=== PATIENT | female | born 1950 | race Caucasian/White ===

== ENCOUNTER 2020-10-24 15:09 | Emergency (ER) | payer MEDICARE, SELFPAY ==
--- NOTE | ~2020-10-24 | CT_ITS ---
EXAMINATION: CT abdomen pelvis w con DATE: 10/24/2020 16:28 INDICATION: Left lower quadrant pain for 4 days TECHNIQUE: Computed tomography (CT) of the abdomen and pelvis was performed with 100 cc Omnipaque 350 intravenous contrast. The dose-length product was 348.78 mGy-cm. Automated exposure control and iter ative reconstruction technique were employed. COMPARISON: None. FINDINGS: Lung bases are unremarkable. Heart size is normal. Moderate atherosclerosis. No aneurysm. N o lymphadenopathy. Fatty infiltration of the liver. The spleen, pancreas, adrenal glands and kidneys are unremarkable. T here is thickening of the descending colon with diverticula and surrounding phlegmonous change, consi stent with acute diverticulitis. No evidence for perforation or abscess. Small amount of free fluid i n the pelvis. No free air. Normal appendix. Gallbladder is present. Mild lumbar spondylosis. IMPRESSION: 1. Acute uncomplicated diverticulitis of the descending colon. Reviewed, dictated and finalized at location A. [facility] C[facility]
[2020-10-24 15:11] VITALS: BP 188/87; PULSE 120; RESP 18; TEMP 36.8; O2SAT 100
[2020-10-24 15:42] VITALS: BP 176/77; PULSE 115; RESP 18; O2SAT 100
--- NOTE | 2020-10-24 15:43 | ED.ABDPAIN ---
HPI - Abdominal Pain General Chief Complaint: Abdominal Pain Stated Complaint: lt low abd pain Time Seen by Provider: 10/24/20 15:15 Source: patient Mode of arrival: ambulatory Limitations: no limitations History of Present Illness HPI narrative: This is a 70 year old female who presents for evaluation of left lower abdominal pain. This pain has been occurring intermittently for 2 days. Her pain is located in the left lower quadrant and she denies radiation of her pain. She has been taking ibuprofen for her pain every 6 hours. Her pain last for a few minutes and then it resolves. She does not currently have pain but she had pain just prior to arrival. She denies associated nausea, vomiting, fever, chills, dysuria or hematuria. She denies history of diverticulitis. She was evaluated by her industrial order clerk and he has ordered an ultrasound to be performed on Tuesday. She did not want to wait until Tuesday. Related Data Home Medications Medication Instructions Recorded Confirmed alprazolam 10/24/20 Allergies Allergy/AdvReac Type Severity Reaction Status Date / Time latex Allergy Mild GETS ITCHY Verified 10/24/20 15:21 RASH erythromycin base Allergy Unknown Hives Verified 10/24/20 15:21 Review of Systems Review of Systems: All systems reviewed & are unremarkable except as noted in HPI and below Constitutional: Constitutional: Denies chills and Denies fever(s) Gastrointestinal: Gastrointestinal: Reports abdominal pain, Reports constipation, Denies diarrhea, Denies nausea and Denies vomiting Genitourinary: Genitourinary: Denies hematuria, Denies dysuria and Denies flank pain Musculoskeletal: Musculoskeletal: Denies back pain [facility] Past Medical History Medical History (Updated 10/24/20 @ 17:03 by Chelsey Abel MD) Patient denies medical problems Surgical History Surgical History (Updated 10/24/20 @ 15:44 by Chelsey Abel MD) History of tonsillectomy Family History Family History (Updated 03/12/16 @ 23:21 by DOCTOR UNKNOWN) Father Depression Cerebrovascular accident Family history of malignant neoplasm Family history of Alzheimer's disease Mother Depression Patient's mother is in good health Family history of malignant melanoma Family history of hearing loss Sibling Patient's sister is in good health Other Family history of allergic disorder Family history of attention deficit hyperactivity disorder (ADHD) Family history of eczema Family history of learning disability Social History Social History Smoking status: Never smoker Alcohol intake: current Gender identity (if verbalized by the patient): Female Exam Const: General: no acute distress and alert Orientation/consciousness: patient oriented x3 HENMT: Head: normocephalic and atraumatic Face and sinus: face symmetric Mouth: Yes Normal oral and palatal mucosa present, Yes lip normal, Yes oropharynx normal and Yes moist mucous membranes Throat: posterior oropharynx normal Eyes: EOM: EOMs intact bilaterally Chest: Chest palpation & inspection: normal inspection of the chest Resp: Effort & Inspection: normal respiratory effort and no retractions Auscultation: clear to auscultation bilaterally Cardio: Rate: tachycardic Rhythm: regular rhythm Heart sounds: no murmurs GI: GI Palp: Yes Soft to palpation, Yes Tenderness to palpation present (GI) (LLQ) and No Guarding due to palpation present (GI) Auscultation: normal bowel sounds : General: Yes no CVA tenderness Skin: General skin exam: normal color Rashes: no rashes Neuro: General: patient oriented x3 and moves all extremities Course Reevaluation(s) Reevaluation #1: I discussed with patient that she was found to have uncomplicated diverticulitis. She will be given a dose of antibiotics while in ED and she will be discharged. Date: 10/24/20 Time: 17:01 Vital Signs Vital signs: Vital Signs Temperature 98.3 F 10/24/20 15:11
[2020-10-24] MEDS: SODIUM CHLORIDE 0.9% IV 1,000 ML 999 ML IV CONT (15:55)
--- NOTE | 2020-10-24 15:56 | PC.NURSE ---
Pt ambulated in [place] to restroom and provided urine specimen that was collected and sent to lab. Pt now resting on cart and is complaining of mild left, lower abdominal pain that increases with palpation. Pt states abdominal pain onset Tuesday and she has been treating with advil with relief. Last dose of Advil 400mg at 1400. Pt states she was seen by her [employer] this morning in relation to pain and he advised her that he would do a ultrasound on Tuesday. Pt states that increases anxiety and fear of increased pain made her present to ED as she felt that she couldn't wait until Tuesday to be seen. Pt admits to hx of anxiety and states she took at total of 0.5mg of xanax at 1300, pt noted to be trembling at this time and states that it is due to her anxiety. Pt denies nausea, emesis and diarrhea. Pt currently rates abdominal pain 1/10 at this time. Resting on cart on phone, calling . Pt aware of poc and all questions and concerns addressed at this time. Call button and personal items within reach. Pt advised to press call button for assistance.
[2020-10-24 16:00] LABS: Basophils Percent Auto 0.2 % (0.2-1.2); Eosinophils Percent Auto 0.2 % (0-4.4); Hemoglobin 13.5 g/dL (12.0-15.0); Immature Granulocyte Absolute 0.04 K/mm3 (0.00-0.031); Immature Granulocyte Percent A 0.3 % (0-0.5); Lymphocytes Absolute Auto 2.51 K/mm3 (0.9-3.2); Lymphocytes Percent Auto 18.3 % (18.3-44.2); Mean Corpuscular HGB Conc 32.9 g/dl (32-36); Mean Corpuscular Hemoglobin 31.5 pg (26-34); Mean Corpuscular Volume 95.8 fl (80-100); Mean Platelet Volume 10.8 fl (7.4-10.4); Monocytes Absolute Auto 1.2 K/mm3 (0.1-0.6); Neutrophils Absolute Auto 9.9 K/mm3 (1.3-6.7); Platelet Count Result 162 k/mm3 (150-375); Red Blood Count 4.28 M/mm3 (4.2-5.4); Red Cell Distribution Width 12.3 % (11.5-14.5); White Blood Count 13.7 K/mm3 (4.5-10.0)
[2020-10-24 16:02] LABS: Add Urine Microscopic? NO; Appearance Urine Clear (Clear); Bilirubin Urine Negative (Negative); Blood Urine Negative (Negative); Color Urine Straw (Yellow); Glucose Urine UA Negative (Negative); Ketones Urine Negative (Negative); Leukocyte Esterase Ur Negative LEU/UL (Negative); Nitrate Urine Negative (Negative); Protein Urine Negative (Negative); Specific Grav Ur 1.011 (1.001-1.035); Urobilinogen Urine Negative mg/dL (<2.0)
[2020-10-24 16:10] LABS: Lactic Acid Reflex 1.4 mmol/L (0.7-2.1)
[2020-10-24 16:12] LABS: Alanine Aminotransferase 27 U/L (4-35); Albumin Level 4.4 g/dL (3.5-5.1); Alkaline Phosphatase 98 U/L (38-126); Anion Gap 9 mmol/L (8-16); Aspartate Amino Transferase 32 U/L (14-36); Bilirubin,Total 1.8 mg/dL (0.2-1.3); Blood Urea Nitrogen 10 mg/dL (7-17); Calcium 9.1 mg/dL (8.4-10.2); Carbon Dioxide 27 mmol/L (22-30); Chloride 107 mmol/L (98-107); Estimated CRCL calculation 54 ml/min; Estimated Glomerular Filt Rate > 60; Glucose 127 mg/dL (65-105); Lipase 61 U/L (23-300); Potassium 3.6 mmol/L (3.4-5.0); Sodium 143 mmol/L (137-145)
[2020-10-24 16:39] VITALS: BP 172/75; PULSE 118; RESP 20; TEMP 37.2; O2SAT 99
--- NOTE | 2020-10-24 16:43 | PC.NURSE ---
Pt assisted to restroom and ambulated in [place] with a steady gait. at bedside. pt now back in room and resting on cart in its lowest position with call button and personal items within reach. Pt and updated on poc and advised the MD will present for update. No complaints or concerns voiced. EDMD to bedside to update pt and on poc. All questions and concerns addressed. Pt educated on home care for diverticulitis and the need to follow up with GI. Pt and voice their understanding.
[2020-10-24] MEDS: metroNIDAZOLE 250 MG TABLET 500 MG PO (16:59)
--- NOTE | 2020-10-24 17:11 | PC.NURSE ---
Pt ambulated in [place] to restroom with a steady gait and is now back in room and resting on cart. Pt and aware of poc. ABT infusing and will dc pt when completed. Pt has no complaints or concerns voiced at this time. vitals stable. remains at bedside. Call button and personal items within reach. Pt advised to press call button for assistance.
[2020-10-24 17:39] VITALS: BP 149/74; PULSE 97; RESP 15; O2SAT 99
== END 2020-10-24 17:43 | disposition home or self-care (01) ==
PROVIDERS: Emergency Provider General Practice; PCP Internal Medicine
DX: K57.32 Diverticulitis of large intestine without perforation or abscess without bleeding (principal)
CPT/HCPCS: 36415; 74177; 80053; 81003; 83605; 83690; 85025; 96365; 96367; 99284; A9270; J0131; J0696; J7030; Q9967

== ENCOUNTER 2020-10-26 06:55 | Emergency (ER) | payer MEDICARE, SELFPAY ==
[2020-10-26 07:02] VITALS: BP 168/103; PULSE 91; RESP 18; TEMP 36.8; O2SAT 99
[2020-10-26 07:42] LABS: Basophils Percent Auto 0.2 % (0.2-1.2); Eosinophils Percent Auto 0.1 % (0-4.4); Hematocrit 40.3 % (37.0-47.0); Hemoglobin 13.5 g/dL (12.0-15.0); Immature Granulocyte Absolute 0.06 K/mm3 (0.00-0.031); Immature Granulocyte Percent A 0.5 % (0-0.5); Lymphocytes Absolute Auto 1.72 K/mm3 (0.9-3.2); Lymphocytes Percent Auto 13.6 % (18.3-44.2); Mean Corpuscular HGB Conc 33.5 g/dl (32-36); Mean Corpuscular Hemoglobin 31.9 pg (26-34); Mean Corpuscular Volume 95.3 fl (80-100); Mean Platelet Volume 10.6 fl (7.4-10.4); Monocytes Absolute Auto 1.4 K/mm3 (0.1-0.6); Monocytes Percent Auto 11.2 % (2.6-8.5); Neutrophils Absolute Auto 9.4 K/mm3 (1.3-6.7); Neutrophils Percent Auto 74.4 % (45.5-73.1); Platelet Count Result 160 k/mm3 (150-375); Red Blood Count 4.23 M/mm3 (4.2-5.4); Red Cell Distribution Width 12.2 % (11.5-14.5); White Blood Count 12.6 K/mm3 (4.5-10.0)
[2020-10-26] MEDS: LORazepam INJ (*CRX) 2 MG/ML VIAL 0.5 MG IV PUSH (07:46)
[2020-10-26] MEDS: ONDANSETRON INJ 4 MG/2 ML VIAL IV PUSH (07:46)
[2020-10-26] MEDS: SODIUM CHLORIDE 0.9% IV 1,000 ML 250 ML IV CONT (07:46)
[2020-10-26 07:54] LABS: Anion Gap 8 mmol/L (8-16); Blood Urea Nitrogen 12 mg/dL (7-17); Calcium 9.4 mg/dL (8.4-10.2); Carbon Dioxide 27 mmol/L (22-30); Chloride 105 mmol/L (98-107); Estimated CRCL calculation 33 ml/min; Estimated Glomerular Filt Rate 45; Glucose 120 mg/dL (65-105); Potassium 3.7 mmol/L (3.4-5.0); Sodium 140 mmol/L (137-145)
[2020-10-26 09:22] VITALS: BP 154/79; PULSE 90; RESP 16; O2SAT 96
--- NOTE | 2020-10-26 10:01 | PC.NURSE ---
pt reports decreased nausea and anxiety after meds. layo small sips h20.
--- NOTE | 2020-10-26 10:27 | ED.GENADULT ---
HPI - General Adult General Chief complaint: Nausea/Vomiting/Diarrhea Stated complaint: Nausea from antibiotic Time Seen by Provider: 10/26/20 07:28 Source: patient and family Mode of arrival: ambulatory Limitations: no limitations History of Present Illness HPI narrative: 70-year-old with a history of anxiety disorder, diverticulitis presently on Cipro and Flagyl here with complaints of nausea and vomiting since yesterday. Patient states that her oral antibiotics are making her sick to her stomach and her anxiety is through the roof. She denies any fever or chills. Patient states that the pain in the lower abdomen has markedly reduced. She denies any other history patient Onset (ago): day(s) (1) Associated symptoms: denies other symptoms Related Data Home Medications Medication Instructions Recorded Confirmed alprazolam 10/24/20 Allergies Allergy/AdvReac Type Severity Reaction Status Date / Time latex Allergy Mild GETS ITCHY Verified 10/26/20 07:17 RASH erythromycin base Allergy Unknown Hives Verified 10/26/20 07:17 Review of Systems Review of Systems: All systems reviewed & are unremarkable except as noted in HPI and below Constitutional: Constitutional: Reports no additional constitutional complaints Eyes: Eyes: Reports no additional eye complaints ENT: Reports system reviewed and no additional complaints, except as documented Cardiovascular: Cardiovascular: Reports no additional cardiovascular complaints Respiratory: Respiratory: Reports no additional respiratory complaints Gastrointestinal: Gastrointestinal: Reports as per HPI Musculoskeletal: Musculoskeletal: Reports no additional musculoskeletal complaints Neurologic: Reports system reviewed and no additional complaints, except as documented Psychiatric: Psychiatric: Reports as per HPI [facility] Past Medical History Medical History Patient denies medical problems Surgical History Surgical History History of tonsillectomy Family History Family History Father Depression Cerebrovascular accident Family history of malignant neoplasm Family history of Alzheimer's disease Mother Depression Patient's mother is in good health Family history of malignant melanoma Family history of hearing loss Sibling Patient's sister is in good health Other Family history of allergic disorder Family history of attention deficit hyperactivity disorder (ADHD) Family history of eczema Family history of learning disability Social History Social History Smoking status: Never smoker Alcohol intake: current Gender identity (if verbalized by the patient): Female Exam Narrative: Exam Narrative: GENERAL: Well-appearing, well-nourished, and in no acute distress ,anxious HEAD: Normocephalic, atraumatic. EYES: PERRLA and EOMI. ENT: Mucous membranes moist. NECK: Supple. CHEST: Clear to auscultation. No respiratory distress. HEART: Regular rate and rhythm. No murmur heard. Normal peripheral pulses. ABDOMEN: Soft, nontender, nondistended, normal active bowel sounds. EXTREMITIES: Normal range of motion. No edema. SKIN: Warm, dry, no rash. NEURO: No focal deficits. Alert and oriented x3. PSYCH: Normal mood and affect. Course Course Emergency Course: After IV Zofran and Ativan patient started feeling much better have given a liter of fluids I discussed lab work with the patient will change antibiotic to Augmentin. Advised her to continue her Xanax as needed. Advised her to drink plenty of fluids. Vital Signs Vital signs: Vital Signs Temperature 36.8 C 10/26/20 07:02 Pulse Rate 91 10/26/20 07:02 Respiratory Rate 18 10/26/20 07:02 Blood Pressure 168/103 H 10/26/20 07:02 Pulse Oximetry 99 10/26/20 07:02 Tem
[2020-10-26 10:42] VITALS: BP 141/73; PULSE 79; RESP 16; O2SAT 99
== END 2020-10-26 10:45 | disposition home or self-care (01) ==
PROVIDERS: Emergency Provider Family Medicine; PCP Internal Medicine
DX: R11.2 Nausea with vomiting, unspecified (principal); E86.0 Dehydration; F41.9 Anxiety disorder, unspecified; T50.905A Adverse effect of unspecified drugs, medicaments and biological substances, initial encounter
CPT/HCPCS: 36415; 80048; 85025; 96361; 96374; 96375; 99284; J2060; J2405; J7030

== ENCOUNTER 2021-01-15 22:24 | Emergency (ER) | payer MEDICARE, SELFPAY ==
--- NOTE | ~2021-01-15 | CT_ITS ---
EXAMINATION: CT abdomen pelvis w con EXAM DATE: 01/16/2021 01:47 INDICATION: Diverticulitis diagnosed 01/08. Fever. Headache. TECHNIQUE: Spiral CT of the abdomen and pelvis was performed following intravenous injection of 100 m L Omnipaque 350. Axial, coronal and sagittal images of the abdomen and pelvis were reviewed. The do se-length product (DLP) for this examination was 274.26 mGy-cm. The exposure was tailored according to patient size (auto mA exposure control), and iterative reconstruction (ASIR) was used as additiona l dose reduction technique. Comparison is made to prior examination from 10/24/2020. FINDINGS: There is hepatic steatosis without suspicious focal lesion identified. Spleen, adrenal glan ds, pancreas are unremarkable. Gallbladder is unremarkable. No biliary obstruction. Portal and spl enic veins are patent. Kidneys enhance symmetrically. There is no hydronephrosis. Possible bladder, right-sided upper urinary tract infection without renal parenchymal involvement. Correlate with urin alysis. The uterus is anteverted and morphologically normal. There is no retroperitoneal or pelvic lymphadenopathy. The appendix is normal. There is mild sigmoid colonic diverticulosis. There is no adjacent inflammat ory change to suggest diverticulitis. The stomach and small bowel are unremarkable. There is expecte d amount of colonic stool. No free intraperitoneal gas. The heart is normal in size. There are n o pericardial or pleural effusions. The lung bases are unremarkable. The bones are unremarkable. IMPRESSION: 1. Possible bladder, right-sided upper urinary tract infection. 2. Resolution of previously seen diverticulitis. Reviewed, dictated and finalized at location B.
[2021-01-15 22:26] VITALS: BP 193/88; PULSE 118; RESP 18; TEMP 35.7; O2SAT 99
[2021-01-15 22:46] LABS: Basophils Percent Auto 0.4 % (0.2-1.2); Eosinophils Absolute Auto 0.3 K/mm3 (0-0.3); Eosinophils Percent Auto 3.8 % (0-4.4); Hematocrit 40.3 % (37.0-47.0); Hemoglobin 13.3 g/dL (12.0-15.0); Immature Granulocyte Absolute 0.01 K/mm3 (0.00-0.031); Immature Granulocyte Percent A 0.1 % (0-0.5); Lymphocytes Absolute Auto 2.69 K/mm3 (0.9-3.2); Lymphocytes Percent Auto 37.5 % (18.3-44.2); Mean Corpuscular Hemoglobin 31.4 pg (26-34); Mean Corpuscular Volume 95.3 fl (80-100); Mean Platelet Volume 9.9 fl (7.4-10.4); Monocytes Absolute Auto 0.7 K/mm3 (0.1-0.6); Monocytes Percent Auto 9.2 % (2.6-8.5); Neutrophils Absolute Auto 3.5 K/mm3 (1.3-6.7); Platelet Count Result 168 k/mm3 (150-375); Red Blood Count 4.23 M/mm3 (4.2-5.4); Red Cell Distribution Width 12.2 % (11.5-14.5); White Blood Count 7.2 K/mm3 (4.5-10.0)
[2021-01-15 22:57] LABS: Alanine Aminotransferase 24 U/L (4-35); Albumin Level 4.5 g/dL (3.5-5.1); Alkaline Phosphatase 87 U/L (38-126); Anion Gap 10 mmol/L (8-16); Aspartate Amino Transferase 32 U/L (14-36); Bilirubin,Total 1.2 mg/dL (0.2-1.3); Blood Urea Nitrogen 12 mg/dL (7-17); Calcium 9.7 mg/dL (8.4-10.2); Carbon Dioxide 26 mmol/L (22-30); Chloride 105 mmol/L (98-107); Estimated CRCL calculation 54 ml/min; Estimated Glomerular Filt Rate > 60; Glucose 111 mg/dL (65-105); Lactic Acid Reflex 0.9 mmol/L (0.7-2.1); Sodium 141 mmol/L (137-145)
[2021-01-16 01:19] VITALS: BP 141/90; PULSE 98; RESP 18; O2SAT 98
--- NOTE | 2021-01-16 01:23 | PC.NURSE ---
Pt presents to ED with and complaints of diffuse abdominal pain that onset approx one week ago. Pt states she has diverticulitis and was prescribed amoxicillin one week ago. 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 Pt is now afebrile and denies all pain and discomfort, nvd, and chills. Pt noted to be alert and oriented x4. Spouse is present at bedside. Vitals are stable and pt in no obvious distress at this time. Advised to press call button for assistance.
[2021-01-16] MEDS: SODIUM CHLORIDE 0.9% IV 1,000 ML 999 ML IV CONT (01:25)
[2021-01-16 01:45] LABS: Add Urine Microscopic? YES; Appearance Urine Clear (Clear); Bilirubin Urine Negative (Negative); Blood Urine Negative (Negative); Color Urine Straw (Yellow); Glucose Urine UA Negative (Negative); Ketones Urine Trace mg/dL (Negative); Leukocyte Esterase Ur Negative LEU/UL (Negative); Mucus Urine Rare /lpf; Nitrate Urine Negative (Negative); Protein Urine Negative (Negative); RBC Urine 0-2 /hpf (0-2); Specific Grav Ur 1.011 (1.001-1.035); Urobilinogen Urine Negative mg/dL (<2.0); WBC Urine 0-3 /hpf
--- NOTE | 2021-01-16 02:12 | PC.NURSE ---
Pt called for assistance to restroom. Pt also voices that she would like some IV medicines to help me relax ; EDMD notified and states he will place orders.
--- NOTE | 2021-01-16 02:18 | PC.NURSE ---
Pt refused lorazepam and requests to take her ativan PO. EDMD approves pt to take home meds.
[2021-01-16 02:23] VITALS: BP 115/63; PULSE 77; RESP 18; O2SAT 97
--- NOTE | 2021-01-16 02:29 | ED.GENADULT ---
HPI - General Adult General Chief complaint: Fever Stated complaint: fever Time Seen by Provider: 01/16/21 00:43 History of Present Illness HPI narrative: Patient 70-year-old female presents the emergency department with chief complaint of fever. Patient reports that she was recently diagnosed with diverticulitis and has been taking Augmentin on a scheduled basis. The patient states that she is still felt, rundown and tonight had some chills and fever at home. Patient states that her pain is improved and denies any diarrhea patient denies blood in her stool reports she has no vomiting reports she has not had a sore throat runny nose or cough. The patient denies any areas of cellulitis. Patient states symptoms are not worsened by anything nor they improved by anything. Related Data Home Medications Medication Instructions Recorded Confirmed alprazolam 10/24/20 Allergies Allergy/AdvReac Type Severity Reaction Status Date / Time latex Allergy Mild GETS ITCHY Verified 01/15/21 22:31 RASH erythromycin base Allergy Unknown Hives Verified 01/15/21 22:31 Review of Systems Review of Systems: Narrative: A 10 system review of systems was completed on the patient and is negative except for what is stated in the HPI. Nursing and ancillary documentation was reviewed. PMFSH Past Medical History Medical History Patient denies medical problems Surgical History Surgical History History of tonsillectomy Family History Family History Father Depression Cerebrovascular accident Family history of malignant neoplasm Family history of Alzheimer's disease Mother Depression Patient's mother is in good health Family history of malignant melanoma Family history of hearing loss Sibling Patient's sister is in good health Other Family history of allergic disorder Family history of attention deficit hyperactivity disorder (ADHD) Family history of eczema Family history of learning disability Social History Social History Smoking status: Never smoker Alcohol intake: current Gender identity (if verbalized by the patient): Female Comments Past medical history significant for diverticulitis Exam Narrative: Exam Narrative: GENERAL: Well-appearing, well-nourished, and in no acute distress. HEAD: Normocephalic, atraumatic. EYES: PERRLA and EOMI. ENT: Nares clear, no rhinorrhea or epistaxis. Mucous membranes moist. NECK: Supple. CHEST: Clear to auscultation. No respiratory distress. HEART: Regular rate and rhythm. No murmur heard. Normal peripheral pulses. ABDOMEN: Soft, nontender, nondistended, normal active bowel sounds. EXTREMITIES: Normal range of motion. No edema. SKIN: Warm, dry, no rash. NEURO: No focal deficits. Alert and oriented x3. PSYCH: Normal mood and affect. Course Course Emergency Course: CT scan shows evidence of improving diverticulitis that is almost completely resolved. Vital Signs Vital signs: Vital Signs Temperature 35.7 C L 01/15/21 22:26 Pulse Rate 118 H 01/15/21 22:26 Respiratory Rate 18 01/15/21 22:26 Blood Pressure 193/88 H 01/15/21 22:26 Pulse Oximetry 99 01/15/21 22:26 Temperature 35.7 C L 01/15/21 22:26 Pulse Rate 77 01/16/21 02:23 Respiratory Rate 18 01/16/21 02:23 Blood Pressure 115/63 01/16/21 02:23 Pulse Oximetry 97 01/16/21 02:23 Medical Decision Making Vital Signs Vital Signs: Vital Signs Temperature 35.7 C L 01/15/21 22:26 Pulse Rate 118 H 01/15/21 22:26 Respiratory Rate 18 01/15/21 22:26 Blood Pressure 193/88 H 01/15/21 22:26 Pulse Oximetry 99 01/15/21 22:26 Temperature 35.7 C L 01/15/21 22:26 Pulse Rate 77 01/16/21 02:23 Respiratory Rate 18 06/0
--- NOTE | 2021-01-16 02:36 | PC.NURSE ---
EDMD presented to bedside to update pt and spouse on poc. All questions and concerns addressed.
--- NOTE | 2021-01-16 02:44 | PC.NURSE ---
Pt assisted to and from restroom and is now back in room resting on cart with spouse at bedside. Pt alert and stable and in no obvious distress. Advised to press call button for assistance.
== END 2021-01-16 02:55 | disposition home or self-care (01) ==
PROVIDERS: Emergency Provider Emergency Medicine; PCP Internal Medicine
DX: R50.9 Fever, unspecified (principal); R10.84 Generalized abdominal pain
CPT/HCPCS: 36415; 74177; 80053; 81001; 83605; 85025; 96360; 99284; J7030; Q9967

== ENCOUNTER 2021-03-19 00:54 | Day surgery (SDC) | payer MEDICARE, SELFPAY ==
[2021-02-10 14:34] VITALS: BMI 24.9
[2021-03-11 10:37] VITALS: BMI 25.0
--- NOTE | 2021-03-19 07:59 | P.CONGI_ITS ---
Assessment and Plan Assessment and plan (1) Diverticulitis: Code(s): K57.92 - Diverticulitis of intestine, part unspecified, without perforation or abscess without bleeding Status: Acute Assessment and Plan: Patient is status post recent episode of diverticulitis. Colonoscopy now recommended to assess status of this infection. High-fiber diet is advised. Further recommendations will be given after endoscopy. GI Consult Note Consult date/time: 03/19/21 07:59 HPI: Juliet Feng is a 70 year old female Presents for follow-up after diverticulitis. Patient had left lower quadrant abdominal pain. CT scan consistent with diverticulitis she is now status post treatment with antibiotics. Abdominal pain has resolved. Bowel habits have returned to normal. Colonoscopy is requested after having had recent diverticulitis. There is no family history of colon cancer that she is aware of. Review of Systems Review of Systems: All systems reviewed & are unremarkable except as noted in HPI and below PMFSH Past Medical History Medical History Patient denies medical problems Surgical History Surgical History History of tonsillectomy Family History Family History Father Depression Cerebrovascular accident Family history of malignant neoplasm Family history of Alzheimer's disease Mother Depression Patient's mother is in good health Family history of malignant melanoma Family history of hearing loss Sibling Patient's sister is in good health Other Family history of allergic disorder Family history of attention deficit hyperactivity disorder (ADHD) Family history of eczema Family history of learning disability Social History Social History Smoking status: Never smoker Alcohol intake: current Living arrangements: alone Gender identity (if verbalized by the patient): Female Spiritual care concerns: No Meds Home Medications and Allergies Home Medications Medication Instructions Recorded Confirmed Type alprazolam 0.25 mg PO BID PRN 10/24/20 03/19/21 History sod picosulf 10 mg-magnes 3.5 160 ml PO BID #160 ml 02/09/21 03/19/21 Rx gram-citric 12 gram/160 mL oral solution cholecalciferol (vitamin D3) 25 mcg PO DAILY 02/10/21 03/19/21 History [Vitamin D3] guar gum [Benefiber (guar gum)] 1 tbsp PO TID 02/10/21 03/19/21 History Allergies Allergy/AdvReac Type Severity Reaction Status Date / Time latex Allergy Mild GETS ITCHY Verified 03/19/21 07:58 RASH erythromycin base Allergy Unknown Hives Verified 03/19/21 07:58 Exam Narrative: Physical exam reveals patient be alert. Vital signs stable. HEENT exam is unremarkable. Patient is anicteric. Lungs are clear to auscultation and percussion. Heart is without murmur or extra sounds. Abdominal exam bowel sounds present soft nontender with no organomegaly. Digital external rectal exam is normal.
[2021-03-19 08:00] VITALS: BP 166/63; PULSE 86; RESP 18; TEMP 36.1; O2SAT 99; BMI 24.5
--- NOTE | 2021-03-19 08:06 | WPDANESEPPF ---
Anes - Initial Pre Proc Eval Procedure: Operation Date: 03/19/21 09:00 Proposed Procedures p Colonoscopy - Jacky Perez MD Date/Time: 03/19/21 08:06 Surgeon: Jacky Perez MD Pre Op Diagnosis: diverticulitis Patient Data Age: 70 Gender: F Height: 1.6 m Weight: 62.8 kg Last Vital Signs Temp 36.1 C L 03/19/21 08:00 Pulse 86 03/19/21 08:00 Resp 18 03/19/21 08:00 BP 166/63 H 03/19/21 08:00 Pulse Ox 99 03/19/21 08:00 Allergies Allergy/AdvReac Type Severity Reaction Status Date / Time latex Allergy Mild GETS ITCHY Verified 03/19/21 07:58 RASH erythromycin base Allergy Unknown Hives Verified 03/19/21 07:58 Home Medications Medication Instructions Recorded Confirmed Type alprazolam 0.25 mg PO BID PRN 10/24/20 03/19/21 History sod picosulf 10 mg-magnes 3.5 160 ml PO BID #160 ml 02/09/21 03/19/21 Rx gram-citric 12 gram/160 mL oral solution cholecalciferol (vitamin D3) 25 mcg PO DAILY 02/10/21 03/19/21 History [Vitamin D3] guar gum [Benefiber (guar gum)] 1 tbsp PO TID 02/10/21 03/19/21 History Patient hx anesthesia problems: none Family hx anesthesia problems: none PMFSH Past Medical History Medical History (Updated 03/19/21 @ 08:07 by Marcell Celeste MD) Anxiety Surgical History Surgical History History of tonsillectomy Family History Family History Father Depression Cerebrovascular accident Family history of malignant neoplasm Family history of Alzheimer's disease Mother Depression Patient's mother is in good health Family history of malignant melanoma Family history of hearing loss Sibling Patient's sister is in good health Other Family history of allergic disorder Family history of attention deficit hyperactivity disorder (ADHD) Family history of eczema Family history of learning disability Social History Social History Smoking status: Never smoker Alcohol intake: current Living arrangements: alone Gender identity (if verbalized by the patient): Female Spiritual care concerns: No Anes - Eval Final PreProcedure Day of Procedure 03/19/21 08:06 Patient weight: normal Heart: regular rate and rhythm Lungs: clear to auscultation Airway: Mallampati scale class II Neurological: alert and oriented Last oral intake: >/= 8 hours ASA classification: II Emergent: no Anesthetic plan: proceed Anesthesia type and monitoring: general GIVS and standard monitoring Informed Consent: The patient's anesthetic plan and its attendant risks and benefits were discussed with the patient/family/POA. Questions were solicited and answers provided to the satisfaction of the patient/family/POA.
[2021-03-19] MEDS: LACTATED RINGERS 1,000 ML 150 ML IV CONT (08:08)
[2021-03-19 09:38] VITALS: BP 104/45; PULSE 80; RESP 20; O2SAT 99
[2021-03-19 09:48] VITALS: BP 129/71; PULSE 82; RESP 22; O2SAT 99
[2021-03-19 09:58] VITALS: BP 114/91; PULSE 77; RESP 18; O2SAT 99
== END 2021-03-19 10:15 | disposition home or self-care (01) ==
PROVIDERS: PCP Internal Medicine; Visit Provider Internal Medicine Gastroenterology
PROC: 0DJD8ZZ Inspection of Lower Intestinal Tract, Via Natural or Artificial Opening Endoscopic (ICD-10-PCS; CPT 45378; principal; 2021-03-19 09:00)
DX: Z09 Encounter for follow-up examination after completed treatment for conditions other than malignant neoplasm (principal); D12.2 Benign neoplasm of ascending colon; K64.8 Other hemorrhoids; K57.30 Diverticulosis of large intestine without perforation or abscess without bleeding; Z87.19 Personal history of other diseases of the digestive system; F41.9 Anxiety disorder, unspecified
CPT/HCPCS: 45385; 88305; J2704; J7120

== ENCOUNTER 2023-11-02 17:03 | Emergency (ER) | payer MEDICARE, SELFPAY ==
--- NOTE | ~2023-11-02 | CT_ITS ---
EXAMINATION: CT abdomen pelvis w con INDICATION: Left lower quadrant abdominal pain TECHNIQUE: Computed tomographic images of the abdomen and pelvis were obtained after the administrati on of 100 cc of Omnipaque 350 intravenous contrast. The dose-length product (DLP) was 228.32 mGy-cm. Automated exposure control and iterative reconstruction technique were employed. COMPARISON: 01/16/2021 FINDINGS: The lung bases are clear. The heart size is normal. The liver, spleen, pancreas, gallbladde r, and adrenal glands are normal. The kidneys are unremarkable. No pathologically enlarged abdominal or pelvic lymph nodes are identified. There is colonic diverticulosis. There is acute diverticulitis of the sigmoid colon without evidence of perforation or abscess. There is a small volume of pelvic as cites. No free intraperitoneal gas or evidence of bowel obstruction. The appendix is normal. There is mild lumbar spondylosis. IMPRESSION: 1. Uncomplicated acute sigmoid diverticulitis. Reviewed, dictated and finalized at location F.
[2023-11-02 17:06] VITALS: BP 171/79; PULSE 119; RESP 16; TEMP 36.6; O2SAT 99
--- NOTE | 2023-11-02 17:43 | ED.ABDPAIN ---
HPI - Abdominal Pain General Chief Complaint: Abdominal Pain <Suzanna Holm III, DO - Last Filed: 11/07/23 10:15> Stated Complaint: Abd pain, hx of diverticulitis <Suzanna Holm III, DO - Last Filed: 11/07/23 10:15> Time Seen by Provider: 11/02/23 17:32 <Suzanna Holm III, DO - Last Filed: 11/07/23 10:15> History of Present Illness HPI narrative: Pt presents with LLQ abdominal pain for a few days. Pt has hx of diverticulitis and this feels similar. Pt has low grade temp. Pt denies bloody stools. Pt denies nausea or vomiting. <Suzanna Holm III, DO - Last Filed: 11/07/23 10:15> Related Data Home Medications: Home Medications Medication Instructions Recorded Confirmed alprazolam 0.25 mg tablet 0.25 mg PO BID PRN Anxiety 10/24/20 09/27/22 cholecalciferol (vitamin D3) 25 25 mcg PO DAILY 02/10/21 09/27/22 mcg (1,000 unit) capsule (Vitamin D3) <Suzanna Holm III, DO - Last Filed: 11/07/23 10:15> Allergies/Adverse Reactions: Allergies Allergy/AdvReac Type Severity Reaction Status Date / Time latex Allergy Mild GETS ITCHY Verified 11/06/23 01:31 RASH erythromycin base Allergy Unknown Hives Verified 11/06/23 01:31 <Suzanna Holm III, DO - Last Filed: 11/07/23 10:15> Review of Systems Review of Systems: All systems reviewed & are unremarkable except as noted in HPI and below <Suzanna Holm III, DO - Last Filed: 11/07/23 10:15> PMFSH Past Medical History Medical History: Medical History Anxiety Bartholin's gland cyst Cataract Encounter for cervical Pap smear with pelvic exam 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 High cholesterol Hypertension Screening mammogram, encounter for Screening mammogram, encounter for <Suzanna Holm III, DO - Last Filed: 11/07/23 10:15> Surgical History Surgical History: Surgical History History of gynecological procedure cryo x 2 History of tonsillectomy <Suzanna Azam Holm III, DO - Last Filed: 11/07/23 10:15> Family History Family History: Family History Father Depression Cerebrovascular accident Family history of malignant neoplasm Family history of Alzheimer's disease Mother Depression Patient's mother is in good health Family history of malignant melanoma Family history of hearing loss Sibling Patient's sister is in good health Other Family history of allergic disorder Family history of attention deficit hyperactivity disorder (ADHD) Family history of eczema Family history of learning disability <Suzanna Azam Holm III, DO - Last Filed: 11/07/23 10:15> Social History Social History: Social History Smoking status: Never smoker Alcohol intake: former Alcohol use details: 1-2 month Substance use: never Substance use type: does not use Living arrangements: other Additional living arrangements comments: spouse Occupation/Education: retired Gender identity (if verbalized by the patient): Female Sexual Orientation (if Verbalized by the Patient): Straight or Heterosexual Spiritual care concerns: No <Suzanna Azam Holm III, DO - Last Filed: 11/07/23 10:15> Exam Const: General: healthy appearing and no acute distress <Suzanna Azam Holm III, DO - Last Filed: 11/07/23 10:15> Nutritional Appearance: well nourished <Suzanna Azam Holm III, DO - Last Filed: 11/07/23 10:15> Orientation/consciousness: patient oriented x3 <Suzanna Azam Holm III, DO - Last Filed: 11/07/23 10:15> Limitations: no limitations <Suzanna Azam Holm III, DO - Last Filed: 11/07/23 10:15> Resp: Effort & Inspection: normal respiratory effort <Suzanna Azam Holm III, DO - Last Filed: 11/07/23 10:15> Auscultation: clear to auscultat
[2023-11-02 17:51] VITALS: BP 171/86; PULSE 110; RESP 18; TEMP 37.9; O2SAT 100
[2023-11-02 18:05] LABS: Basophils Percent Auto 0.1 % (0.2-1.2); Eosinophils Absolute Auto 0.1 K/mm3 (0-0.3); Eosinophils Percent Auto 0.6 % (0-4.4); Hematocrit 40.8 % (37.0-47.0); Hemoglobin 13.3 g/dL (12.0-15.0); Immature Granulocyte Absolute 0.02 K/mm3 (0.00-0.031); Immature Granulocyte Percent A 0.3 % (0-0.5); Lymphocytes Absolute Auto 1.51 K/mm3 (0.9-3.2); Lymphocytes Percent Auto 19.1 % (18.3-44.2); Mean Corpuscular HGB Conc 32.6 g/dl (32-36); Mean Corpuscular Volume 98.3 fl (80-100); Mean Platelet Volume 10.4 fl (7.4-10.4); Monocytes Absolute Auto 0.7 K/mm3 (0.1-0.6); Monocytes Percent Auto 9.4 % (2.6-8.5); Neutrophils Absolute Auto 5.6 K/mm3 (1.3-6.7); Neutrophils Percent Auto 70.5 % (45.5-73.1); Platelet Count Result 159 k/mm3 (150-375); Red Blood Count 4.15 M/mm3 (4.2-5.4); Red Cell Distribution Width 12.7 % (11.5-14.5); White Blood Count 7.9 K/mm3 (4.5-10.0)
[2023-11-02 18:13] LABS: Appearance Urine Clear (Clear); Bacteria Urine None Seen /hpf; Bilirubin Urine Negative (Negative); Blood Urine Non-Hemolyzed Trace (Negative); Color Urine Yellow (Yellow); Glucose Urine UA Negative (Negative); Ketones Urine Negative (Negative); Leukocyte Esterase Ur Trace LEU/UL (Negative); Nitrate Urine Negative (Negative); Non Pathogenic Casts 0-2; Protein Urine Negative (Negative); RBC Urine 0-2 /hpf (0-2); Specific Grav Ur 1.015 (1.001-1.035); Squamous Epithelial Cell Urine None Seen /hpf (Few); Urobilinogen Urine 0.2 mg/dL (<2.0); WBC Urine 0-5 /hpf (0-3); pH Urine 5.5 (5.0-9.0)
[2023-11-02 18:14] LABS: Add Urine Microscopic? YES
[2023-11-02 18:19] LABS: Alanine Aminotransferase 35 U/L (6-35); Albumin Level 4.4 g/dL (3.5-5.1); Alkaline Phosphatase 137 U/L (38-126); Anion Gap 7 mmol/L (8-16); Aspartate Amino Transferase 38 U/L (14-36); Bilirubin,Total 1.2 mg/dL (0.2-1.3); Blood Urea Nitrogen 15 mg/dL (7-17); Calcium 9.3 mg/dL (8.4-10.2); Carbon Dioxide 24 mmol/L (22-30); Chloride 106 mmol/L (98-107); Estimated CRCL calculation 60 ml/min; Estimated Glomerular Filt Rate > 60; Glucose 126 mg/dL (65-110); Lipase 59 U/L (23-300); Potassium 3.8 mmol/L (3.4-5.0); Sodium 137 mmol/L (137-145)
--- NOTE | 2023-11-02 18:28 | PC.NURSE ---
pt to CT via stretcher at this time.
[2023-11-02 18:41] VITALS: BP 180/82; PULSE 116; RESP 18; O2SAT 99
--- NOTE | 2023-11-02 19:16 | PC.NURSE ---
BSSR received from CHANDRAKANT Rodriguez. Pt walking to restroom at this time.
[2023-11-02 20:26] VITALS: BP 167/77; PULSE 106; RESP 20; TEMP 37.3; O2SAT 97
== END 2023-11-02 20:28 | disposition home or self-care (01) ==
PROVIDERS: Emergency Medicine; Emergency Provider Emergency Medicine; PCP Internal Medicine
DX: K57.32 Diverticulitis of large intestine without perforation or abscess without bleeding (principal); I10 Essential (primary) hypertension; E78.00 Pure hypercholesterolemia, unspecified; H26.9 Unspecified cataract; F41.9 Anxiety disorder, unspecified
CPT/HCPCS: 36415; 74177; 80053; 83690; 85025; 99284; Q9967

== ENCOUNTER 2023-11-06 01:25 | Emergency (ER) | payer MEDICARE, SELFPAY ==
[2023-11-06 01:28] VITALS: BP 168/72; PULSE 95; RESP 17; TEMP 36.3; O2SAT 99
--- NOTE | 2023-11-06 02:27 | ED.NAVMDI ---
HPI - Nausea/Vomiting/Diarrhea General Chief complaint: Nausea/Vomiting/Diarrhea Stated complaint: nausea Time Seen by Provider: 11/06/23 01:43 History of Present Illness HPI Narrative: This is a 73-year-old female, recently diagnosed with diverticulitis, who returns to the emergency department complaining of nausea. The patient states her nausea occurs shortly after taking her amoxicillin. It has not improved despite use of Zofran. She denies vomiting. She states she had a similar though worse reaction to ciprofloxacin and metronidazole 3 years ago. She has no other complaints at this time. She states her abdominal pain has significantly improved. Related Data Home Medications Medication Instructions Recorded Confirmed alprazolam 0.25 mg tablet 0.25 mg PO BID PRN Anxiety 10/24/20 09/27/22 cholecalciferol (vitamin D3) 25 25 mcg PO DAILY 02/10/21 09/27/22 mcg (1,000 unit) capsule (Vitamin D3) Allergies Allergy/AdvReac Type Severity Reaction Status Date / Time latex Allergy Mild GETS ITCHY Verified 11/06/23 01:31 RASH erythromycin base Allergy Unknown Hives Verified 11/06/23 01:31 Review of Systems Review of Systems: CONSTITUTIONAL: Denies fever, chills, or sweats. CARDIOVASCULAR: Denies chest pain, palpitations, or edema. RESPIRATORY: Denies cough or dyspnea. GASTROINTESTINAL: Nausea Denies abdominal pain, vomiting, or diarrhea. GENITOURINARY: Denies dysuria or hematuria. SKIN: Denies rash or itching. MUSCULOSKELETAL: Denies back pain, joint pain, or myalgia. NEUROLOGIC: Denies headache, numbness, dizziness, or weakness. PSYCHIATRIC: Denies anxiety or depression. 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 High cholesterol Hypertension Screening mammogram, encounter for Screening mammogram, encounter for Surgical History Surgical History History of gynecological procedure cryo x 2 History of tonsillectomy Family History Family History Father Depression Cerebrovascular accident Family history of malignant neoplasm Family history of Alzheimer's disease Mother Depression Patient's mother is in good health Family history of malignant melanoma Family history of hearing loss Sibling Patient's sister is in good health Other Family history of allergic disorder Family history of attention deficit hyperactivity disorder (ADHD) Family history of eczema Family history of learning disability Social History Social History Smoking status: Never smoker Alcohol intake: former Alcohol use details: 1-2 month Substance use: never Substance use type: does not use Living arrangements: other Additional living arrangements comments: spouse Occupation/Education: retired Gender identity (if verbalized by the patient): Female Sexual Orientation (if Verbalized by the Patient): Straight or Heterosexual Spiritual care concerns: No Exam Narrative: GENERAL: Well-developed, well-nourished, and in no acute distress. HEAD: Normocephalic, atraumatic. EYES: PERRLA and EOMI. CHEST: Clear to auscultation. No respiratory distress. No wheezes rales or rhonchi HEART: Regular rate and rhythm. No murmur heard. Normal peripheral pulses. ABDOMEN: Soft, nontender, nondistended, normal active bowel sounds. EXTREMITIES: Normal range of motion. No edema. SKIN: Warm, dry, no rash. NEURO: Alert and oriented x3. No focal deficit. Moving all 4 limbs spontaneously PSYCH: Normal mood and affect. Course Course Emergency Course: 03:39 - on re-evaluation, the patient states her nausea is not significantly improved. I had
[2023-11-06] MEDS: PROCHLORPERAZINE MALEATE 5 MG TABLET 10 MG PO (02:44)
[2023-11-06 03:49] VITALS: BP 158/84; PULSE 67; RESP 18; O2SAT 99
== END 2023-11-06 03:49 | disposition home or self-care (01) ==
PROVIDERS: Emergency Provider Preventive Medicine Aerospace Medicine; PCP Internal Medicine
DX: T80.69XA Other serum reaction due to other serum, initial encounter (principal); T36.0X5A Adverse effect of penicillins, initial encounter; R11.0 Nausea; E78.00 Pure hypercholesterolemia, unspecified; I10 Essential (primary) hypertension; H26.9 Unspecified cataract; F41.9 Anxiety disorder, unspecified
CPT/HCPCS: 99283; A9270

== ENCOUNTER 2024-02-23 19:47 | Emergency (ER) | payer MEDICARE, SELFPAY ==
[2024-02-23] VITALS (14 sets, daily range): BP systolic 149–179; BP diastolic 67–86; PULSE 92–105; RESP 14–25; TEMP 36.4; O2SAT 98–100
--- NOTE | ~2024-02-23 | XR_ITS ---
EXAMINATION: XR chest 2V DATE: 02/23/2024 20:41 INDICATION: Syncope. TECHNIQUE: Frontal and lateral views of the chest were obtained. COMPARISON: CT abdomen and pelvis 11/02/2023 FINDINGS: There is no pneumonia, pleural effusion, or pneumothorax. The heart size is normal. IMPRESSION: 1. No acute cardiopulmonary disease. Reviewed, dictated and finalized at location E.
--- NOTE | 2024-02-23 19:47 | ECG_ITS ---
Test Date: 2024-02-23 20:21:32 Measurements Intervals [place] Rate: 91 P: 54 [place]: 181 QRS: -26 QRSD: 90 T: 51 QT: 345 QTc: 424 Interpretive Statements SINUS RHYTHM POSSIBLE LEFT ATRIAL ENLARGEMENT DELAYED PRECORDIAL R/S TRANSITION LEFT VENTRICULAR HYPERTROPHY WITH ST-T CHANGE BASELINE ARTIFACT- I, III, AVL BORDERLINE ECG No previous ECG available for comparison Electronically Signed On 02-23-2024 20:30:42 CDT by Aravind Iglesias D.O.
[2024-02-23 20:33] LABS: Basophils Percent Auto 0.3 % (0.2-1.2); Eosinophils Absolute Auto 0.1 K/mm3 (0-0.3); Eosinophils Percent Auto 0.9 % (0-4.4); Hematocrit 41.7 % (37.0-47.0); Hemoglobin 13.6 g/dL (12.0-15.0); Immature Granulocyte Absolute 0.07 K/mm3 (0.00-0.031); Immature Granulocyte Percent A 0.8 % (0-0.5); Lymphocytes Absolute Auto 2.51 K/mm3 (0.9-3.2); Mean Corpuscular HGB Conc 32.6 g/dl (32-36); Mean Corpuscular Hemoglobin 32.4 pg (26-34); Mean Corpuscular Volume 99.3 fl (80-100); Mean Platelet Volume 9.9 fl (7.4-10.4); Monocytes Absolute Auto 0.9 K/mm3 (0.1-0.6); Monocytes Percent Auto 9.6 % (2.6-8.5); Neutrophils Absolute Auto 5.4 K/mm3 (1.3-6.7); Neutrophils Percent Auto 60.4 % (45.5-73.1); Platelet Count Result 191 k/mm3 (150-375); Red Cell Distribution Width 12.4 % (11.5-14.5)
[2024-02-23 20:45] LABS: Alanine Aminotransferase 24 U/L (6-35); Albumin Level 4.3 g/dL (3.5-5.1); Alkaline Phosphatase 119 U/L (38-126); Anion Gap 10 mmol/L (4-12); Aspartate Amino Transferase 29 U/L (14-36); Bilirubin,Total 0.7 mg/dL (0.2-1.3); Blood Urea Nitrogen 19 mg/dL (7-17); Calcium 9.6 mg/dL (8.4-10.2); Carbon Dioxide 27 mmol/L (22-30); Chloride 101 mmol/L (98-107); Estimated CRCL calculation 52 ml/min; Estimated Glomerular Filt Rate > 60; Glucose 122 mg/dL (65-110); Potassium 4.2 mmol/L (3.4-5.0); Sodium 138 mmol/L (137-145)
--- NOTE | 2024-02-23 20:58 | ED.SYNCOPE ---
HPI - Syncope General Chief Complaint: Syncope Stated Complaint: syncope Time Seen by Provider: 02/23/24 19:59 History of Present Illness HPI narrative: Patient is a 73-year-old female who presents to the ER with a near syncopal episode. 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 She started to wobble insert my helped her sit down. Patient recently started a new antihypertensive 2 days ago. She also took tramadol for the 1st time today. No fevers or chills. No chest pain. No racing heart. Related Data Home Medications Medication Instructions Recorded Confirmed alprazolam 0.25 mg tablet 0.25 mg PO BID PRN Anxiety 10/24/20 12/07/23 cholecalciferol (vitamin D3) 25 25 mcg PO DAILY 02/10/21 12/07/23 mcg (1,000 unit) capsule (Vitamin D3) Allergies Allergy/AdvReac Type Severity Reaction Status Date / Time latex Allergy Mild GETS ITCHY Verified 02/23/24 19:48 RASH erythromycin base Allergy Unknown Hives Verified 02/23/24 19:48 Review of Systems Review of Systems: All systems reviewed & are unremarkable except as noted in HPI and below Constitutional: Constitutional: Reports no additional constitutional complaints ENT: Reports system reviewed and no additional complaints, except as documented Cardiovascular: Cardiovascular: Reports no additional cardiovascular complaints Respiratory: Respiratory: Reports no additional respiratory complaints Neurologic: Reports system reviewed and no additional complaints, except as documented [facility] Past Medical History Medical History (Updated 02/23/24 @ 22:11 by Mark Nava MD) Anxiety Bartholin's gland cyst Cataract Diverticulitis Encounter for cervical Pap smear with pelvic exam 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 High cholesterol Hypertension Screening mammogram, encounter for Screening mammogram, encounter for Surgical History Surgical History History of gynecological procedure cryo x 2 History of tonsillectomy Family History Family History (Updated 12/07/23 @ 15:12 by JULIO Mcdonough) Father Depression Cerebrovascular accident Family history of malignant neoplasm Family history of Alzheimer's disease Mother Depression Patient's mother is in good health Family history of malignant melanoma Family history of hearing loss Sibling Patient's sister is in good health Uterine cancer sister Other Family history of allergic disorder Family history of attention deficit hyperactivity disorder (ADHD) Family history of eczema Family history of learning disability Social History Social History (Updated 12/07/23 @ 15:12 by Shelley Mcnamara [facility]) Smoking status: Never smoker Second hand tobacco smoke exposure: No Alcohol intake: former Alcohol use details: 1-2 month Substance use: never Substance use type: does not use Do You Feel Safe in your Home?: Yes Lack of Transportation: No Lack of Food: Never True Current Housing: I Have Housing Concerned About Future Housing: No Difficulty Paying Gas/Electric Bills: No Difficulty Paying for Meds: No Currently Unemployed: No Education: High School Diploma/GED Difficulty w/ Childcare or Family Care: No Living arrangements: with family Additional living arrangements comments: spouse Occupation/Education: retired Gender identity (if verbalized by the patient): Female Sexual Orientation (if Verbalized by the Patient): Straight or Heterosexual Spiritual care concerns: No Exam Narrative: GENERAL: Well-appearing, well-nourished, and in no acute distress. HEAD: Normocephalic, atraumatic. ENT: Mucous membranes moist. CHEST: Clear to auscultation. No respiratory distress. HEART: Regular rate and rhythm. Normal peripheral pulses. ABDOMEN: Soft, nontender, nondistended. EXTREMITIES: Normal range of motion.
[2024-02-23] MEDS: SODIUM CHLORIDE 0.9% IV 1,000 ML 999 ML IV CONT (21:01)
== END 2024-02-23 22:19 | disposition home or self-care (01) ==
PROVIDERS: Emergency Provider Emergency Medicine; PCP Internal Medicine
DX: R55 Syncope and collapse (principal); E86.0 Dehydration; I10 Essential (primary) hypertension; E78.00 Pure hypercholesterolemia, unspecified; F41.9 Anxiety disorder, unspecified; Z79.899 Other long term (current) drug therapy; R94.31 Abnormal electrocardiogram [ECG] [EKG]
CPT/HCPCS: 36415; 71046; 80053; 85025; 93005; 96360; 99284; J7030

== ENCOUNTER 2024-04-01 12:09 | Emergency (ER) | payer MEDICARE, SELFPAY ==
--- NOTE | ~2024-04-01 | CT_ITS ---
EXAMINATION: CT abdomen pelvis w con DATE: 04/01/2024 14:17 INDICATION: Left lower quadrant abdominal pain. History of diverticulitis. TECHNIQUE: Computed tomography (CT) of the abdomen and pelvis was performed with 100 CC Omnipaque 350 intravenous contrast. Automated exposure control and iterative reconstruction technique were employe d. Exam dose: 257.60 mGy-cm total exam DLP. COMPARISON: 11/02/2023 CT abdomen pelvis FINDINGS: The lung bases are clear of consolidation. No pericardial or pleural effusion. Hepatic steatosis. No hepatic space-occupying mass lesion. The gallbladder appears unremarkable. No b ile duct or pancreatic duct dilatation. No pancreatic mass lesion or calcification. Normal splenic size. Normal morphology of the adrenal glands. No renal mass lesion or urinary tract calculus or hydroureteronephrosis. Normal caliber of the abdominal aorta. No intraperitoneal or retroperitoneal or pelvic mass lesion or adenopathy or ascites. The uterus, adnexal areas and urinary bladder are unremarkable. Diverticulosis of the sigmoid and to a lesser extent descending colon. There is thickening of the wall of the junction of the distal descending and proximal sigmoid colon w ith prominent surrounding fat stranding and fascial thickening, consistent with acute uncomplicated s igmoid diverticulitis. There is a small amount of free fluid in the dependent pelvis. No evidence of appendicitis. No bowel obstruction or intraperitoneal free air. Small fat-containing umbilical hernia. No suspicious osteolytic or osteoblastic lesions. IMPRESSION: Acute uncomplicated proximal sigmoid diverticulitis, and similar position to that noted on 11/07 2023 Reviewed, dictated and finalized at Location A. Reviewed, dictated and finalized at location J. IMPRESSION: Acute uncomplicated proximal sigmoid diverticulitis, and similar p osition to that noted on 11/07 2023
[2024-04-01 12:19] VITALS: BP 155/74; PULSE 109; RESP 20; TEMP 36.5; O2SAT 97
[2024-04-01 12:34] LABS: Basophils Percent Auto 0.1 % (0.2-1.2); Eosinophils Absolute Auto 0.1 K/mm3 (0-0.3); Eosinophils Percent Auto 0.6 % (0-4.4); Hematocrit 38.4 % (37.0-47.0); Hemoglobin 12.8 g/dL (12.0-15.0); Immature Granulocyte Absolute 0.03 K/mm3 (0.00-0.031); Immature Granulocyte Percent A 0.4 % (0-0.5); Lymphocytes Absolute Auto 2.39 K/mm3 (0.9-3.2); Lymphocytes Percent Auto 29.4 % (18.3-44.2); Mean Corpuscular HGB Conc 33.3 g/dl (32-36); Mean Corpuscular Hemoglobin 32.9 pg (26-34); Mean Corpuscular Volume 98.7 fl (80-100); Mean Platelet Volume 9.8 fl (7.4-10.4); Monocytes Absolute Auto 0.8 K/mm3 (0.1-0.6); Monocytes Percent Auto 9.8 % (2.6-8.5); Neutrophils Absolute Auto 4.9 K/mm3 (1.3-6.7); Neutrophils Percent Auto 59.7 % (45.5-73.1); Platelet Count Result 175 k/mm3 (150-375); Red Blood Count 3.89 M/mm3 (4.2-5.4); White Blood Count 8.1 K/mm3 (4.5-10.0)
[2024-04-01 12:44] LABS: Alanine Aminotransferase 19 U/L (6-35); Albumin Level 4.4 g/dL (3.5-5.1); Alkaline Phosphatase 128 U/L (38-126); Anion Gap 10 mmol/L (4-12); Aspartate Amino Transferase 32 U/L (14-36); Bilirubin,Total 1.2 mg/dL (0.2-1.3); Blood Urea Nitrogen 13 mg/dL (7-17); Calcium 9.4 mg/dL (8.4-10.2); Carbon Dioxide 28 mmol/L (22-30); Chloride 101 mmol/L (98-107); Estimated CRCL calculation 60 ml/min; Estimated Glomerular Filt Rate > 60; Glucose 101 mg/dL (65-110); Lipase 48 U/L (23-300); Potassium 3.9 mmol/L (3.4-5.0); Sodium 139 mmol/L (137-145)
[2024-04-01 13:46] LABS: Add Urine Microscopic? NO; Appearance Urine Clear (Clear); Bilirubin Urine Negative (Negative); Blood Urine Negative (Negative); Color Urine Yellow (Yellow); Glucose Urine UA Negative (Negative); Ketones Urine Negative (Negative); Leukocyte Esterase Ur Negative LEU/UL (Negative); Nitrate Urine Negative (Negative); Protein Urine Negative (Negative); Specific Grav Ur 1.008 (1.001-1.035); Urobilinogen Urine 0.2 mg/dL (<2.0)
--- NOTE | 2024-04-01 14:13 | ED.GENADULT ---
HPI - General Adult General Chief complaint: Abdominal Pain Stated complaint: I think I have diverticulitis Time Seen by Provider: 04/01/24 13:21 History of Present Illness HPI narrative: Patient 71-year-old female who presents emerged from with chief complaint of left lower quadrant pain. The patient reports he has prior history of diverticulitis reports that she started having some discomfort in the left lower quadrant that hurts whenever she palpates it patient denies fever reports that she has had no nausea or vomiting denies diarrhea denies blood in her stool. Related Data Home Medications Medication Instructions Recorded Confirmed alprazolam 0.25 mg tablet 0.25 mg PO BID PRN Anxiety 10/24/20 12/07/23 cholecalciferol (vitamin D3) 25 25 mcg PO DAILY 02/10/21 12/07/23 mcg (1,000 unit) capsule (Vitamin D3) Allergies Allergy/AdvReac Type Severity Reaction Status Date / Time latex Allergy Mild GETS ITCHY Verified 04/01/24 14:04 RASH erythromycin base Allergy Unknown Hives Verified 04/01/24 14:04 Review of Systems Review of Systems: A 10 system review of systems was completed on the patient and is negative except for what is stated in the HPI. Nursing and ancillary documentation was reviewed. 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 High cholesterol Hypertension Screening mammogram, encounter for Screening mammogram, encounter for Surgical History Surgical History History of gynecological procedure cryo x 2 History of tonsillectomy Family History Family History Father Depression Cerebrovascular accident Family history of malignant neoplasm Family history of Alzheimer's disease Mother Depression Patient's mother is in good health Family history of malignant melanoma Family history of hearing loss Sibling Patient's sister is in good health Uterine cancer sister Other Family history of allergic disorder Family history of attention deficit hyperactivity disorder (ADHD) Family history of eczema Family history of learning disability Social History Social History Smoking status: Never smoker Second hand tobacco smoke exposure: No Alcohol intake: former Alcohol use details: 1-2 month Substance use: never Substance use type: does not use Do You Feel Safe in your Home?: Yes Lack of Transportation: No Lack of Food: Never True Current Housing: I Have Housing Concerned About Future Housing: No Difficulty Paying Gas/Electric Bills: No Difficulty Paying for Meds: No Currently Unemployed: No Education: High School Diploma/GED Difficulty w/ Childcare or Family Care: No Living arrangements: with family Additional living arrangements comments: spouse Occupation/Education: retired Gender identity (if verbalized by the patient): Female Sexual Orientation (if Verbalized by the Patient): Straight or Heterosexual Spiritual care concerns: No Exam Narrative: GENERAL: Well-appearing, well-nourished, and in no acute distress. HEAD: Normocephalic, atraumatic. EYES: PERRLA and EOMI. ENT: Nares clear, no rhinorrhea or epistaxis. Mucous membranes moist. NECK: Supple. CHEST: Clear to auscultation. No respiratory distress. HEART: Regular rate and rhythm. No murmur heard. Normal peripheral pulses. ABDOMEN: Soft, mild tenderness to palpation in the left lower quadrant, nondistended, normal active bowel sounds. EXTREMITIES: Normal range of motion. No edema. SKIN: Warm, dry, no rash. NEURO: No focal deficits. Alert and oriented x3.
[2024-04-01 16:16] VITALS: BP 151/85; PULSE 105; RESP 18; TEMP 36.9; O2SAT 100
== END 2024-04-01 16:18 | disposition home or self-care (01) ==
PROVIDERS: Emergency Medicine; Emergency Provider Emergency Medicine; PCP Internal Medicine
DX: K57.32 Diverticulitis of large intestine without perforation or abscess without bleeding (principal); I10 Essential (primary) hypertension; E78.00 Pure hypercholesterolemia, unspecified; F41.9 Anxiety disorder, unspecified; Z79.899 Other long term (current) drug therapy
CPT/HCPCS: 36415; 74177; 80053; 81003; 83690; 85025; 99284; Q9967

== ENCOUNTER 2024-04-14 12:40 | Emergency (ER) | payer MEDICARE, SELFPAY ==
[2024-04-14] VITALS (15 sets, daily range): BP systolic 133–152; BP diastolic 71–75; PULSE 100–120; RESP 14–19; TEMP 37; O2SAT 98–100
--- NOTE | 2024-04-14 13:05 | ECG_ITS ---
Test Date: 2024-04-14 13:10:16 Measurements Intervals [place] Rate: 117 P: 0 DE: 0 QRS: -22 QRSD: 81 T: 82 QT: 316 QTc: 442 Interpretive Statements SINUS TACHYCARDIA BORDERLINE LEFT AXIS DEVIATION [QRS AXIS < -20] MODERATE VOLTAGE CRITERIA FOR LVH, CONSIDER NORMAL VARIANT [MEETS CRITERIA IN ONE OF: R(aVL), S(V1), R(V5), R(V5/V6)+S(V1)] NONSPECIFIC T-WAVE ABNORMALITY ABNORMAL RHYTHM ECG Compared to ECG 02/23/2024 20:21:32 heart rate increased Electronically Signed On 04-14-2024 14:50:33 CDT by Rupesh Singer M.D.
[2024-04-14] MEDS: LACTATED RINGERS 1,000 ML 999 ML IV CONT (13:45)
[2024-04-14 13:54] LABS: Basophils Percent Auto 0.4 % (0.2-1.2); Eosinophils Absolute Auto 0.1 K/mm3 (0-0.3); Eosinophils Percent Auto 1.9 % (0-4.4); Hematocrit 36.4 % (37.0-47.0); Immature Granulocyte Absolute 0.03 K/mm3 (0.00-0.031); Immature Granulocyte Percent A 0.4 % (0-0.5); Lymphocytes Percent Auto 27.2 % (18.3-44.2); Mean Corpuscular Hemoglobin 32.2 pg (26-34); Mean Corpuscular Volume 97.6 fl (80-100); Mean Platelet Volume 9.6 fl (7.4-10.4); Monocytes Absolute Auto 0.8 K/mm3 (0.1-0.6); Monocytes Percent Auto 10.9 % (2.6-8.5); Neutrophils Absolute Auto 4.4 K/mm3 (1.3-6.7); Neutrophils Percent Auto 59.2 % (45.5-73.1); Platelet Count Result 254 k/mm3 (150-375); Red Blood Count 3.73 M/mm3 (4.2-5.4); White Blood Count 7.4 K/mm3 (4.5-10.0)
[2024-04-14 14:07] LABS: Alanine Aminotransferase 18 U/L (6-35); Albumin Level 4.3 g/dL (3.5-5.1); Alkaline Phosphatase 83 U/L (38-126); Anion Gap 9 mmol/L (4-12); Aspartate Amino Transferase 26 U/L (14-36); Bilirubin,Total 1.1 mg/dL (0.2-1.3); Blood Urea Nitrogen 19 mg/dL (7-17); Calcium 9.5 mg/dL (8.4-10.2); Carbon Dioxide 28 mmol/L (22-30); Chloride 97 mmol/L (98-107); Estimated CRCL calculation 60 ml/min; Estimated Glomerular Filt Rate > 60; Glucose 120 mg/dL (65-110); Potassium 3.9 mmol/L (3.4-5.0); Sodium 134 mmol/L (137-145)
--- NOTE | 2024-04-14 15:00 | ED.GENADULT ---
HPI - General Adult General Chief complaint: Dizziness Stated complaint: dizziness Time Seen by Provider: 04/14/24 13:15 History of Present Illness HPI narrative: Patient is a 73-year-old female who presents ER with weakness and dizziness. Patient had a diagnosis of diverticulitis and has completed a course of Augmentin. She reports she feels like she is having trouble getting her strength back since then. No fevers or chills or sweats. No chest pain or chest pressure. No racing heart. No loss of consciousness. No alleviating factors. Related Data Home Medications Medication Instructions Recorded Confirmed alprazolam 0.25 mg tablet 0.25 mg PO BID PRN Anxiety 10/24/20 12/07/23 cholecalciferol (vitamin D3) 25 25 mcg PO DAILY 02/10/21 12/07/23 mcg (1,000 unit) capsule (Vitamin D3) Allergies Allergy/AdvReac Type Severity Reaction Status Date / Time latex Allergy Mild GETS ITCHY Verified 04/01/24 14:04 RASH erythromycin base Allergy Unknown Hives Verified 04/01/24 14:04 Review of Systems Review of Systems: All systems reviewed & are unremarkable except as noted in HPI and below Constitutional: Constitutional: Denies chills, Reports fatigue and Denies fever(s) ENT: Reports system reviewed and no additional complaints, except as documented Cardiovascular: Cardiovascular: Reports no additional cardiovascular complaints Respiratory: Respiratory: Reports no additional respiratory complaints Gastrointestinal: Gastrointestinal: Reports no additional gastrointestinal complaints [facility] Past Medical History Medical History Anxiety Bartholin's gland cyst Cataract Diverticulitis Encounter for cervical Pap smear with pelvic exam 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 High cholesterol Hypertension Screening mammogram, encounter for Screening mammogram, encounter for Surgical History Surgical History History of gynecological procedure cryo x 2 History of tonsillectomy Family History Family History Father Depression Cerebrovascular accident Family history of malignant neoplasm Family history of Alzheimer's disease Mother Depression Patient's mother is in good health Family history of malignant melanoma Family history of hearing loss Sibling Patient's sister is in good health Uterine cancer sister Other Family history of allergic disorder Family history of attention deficit hyperactivity disorder (ADHD) Family history of eczema Family history of learning disability Social History Social History Smoking status: Never smoker Second hand tobacco smoke exposure: No Alcohol intake: former Alcohol use details: 1-2 month Substance use: never Substance use type: does not use Do You Feel Safe in your Home?: Yes Lack of Transportation: No Lack of Food: Never True Current Housing: I Have Housing Concerned About Future Housing: No Difficulty Paying Gas/Electric Bills: No Difficulty Paying for Meds: No Currently Unemployed: No Education: High School Diploma/GED Difficulty w/ Childcare or Family Care: No Living arrangements: with family Additional living arrangements comments: spouse Occupation/Education: retired Gender identity (if verbalized by the patient): Female Sexual Orientation (if Verbalized by the Patient): Straight or Heterosexual Spiritual care concerns: No Exam Narrative: GENERAL: Well-appearing, well-nourished, and in no acute distress. HEAD: Normocephalic, atraumatic. ENT: Mucous membranes moist. CHEST: Clear to auscultation. No respiratory distress. HEART: Regular rate and rhythm. Normal peripheral pulses. ABDOMEN: Soft, nontender, nondistended. EXTREMITIES:
[2024-04-14 15:20] LABS: Color Urine Yellow (Yellow)
[2024-04-14 15:21] LABS: Appearance Urine Clear (Clear); pH Urine 6.5 (5.0-9.0)
[2024-04-14 15:22] LABS: Blood Urine Negative (Negative); Glucose Urine UA Negative (Negative); Ketones Urine Negative (Negative); Nitrate Urine Negative (Negative); Protein Urine Negative (Negative)
[2024-04-14 15:23] LABS: Add Urine Microscopic? YES; Bilirubin Urine Negative (Negative); Leukocyte Esterase Ur 1+ LEU/UL (Negative); Urobilinogen Urine 0.2 mg/dL (<2.0)
[2024-04-14 15:24] LABS: RBC Urine None seen /hpf (0-2); WBC Urine 0-3 /hpf (0-3)
[2024-04-14 15:25] LABS: Squamous Epithelial Cell Urine Moderate /hpf (Few)
[2024-04-14 15:26] LABS: Bacteria Urine Trace /hpf
== END 2024-04-14 16:41 | disposition home or self-care (01) ==
PROVIDERS: Emergency Provider Emergency Medicine; PCP Internal Medicine
DX: E86.0 Dehydration (principal); F41.9 Anxiety disorder, unspecified; I10 Essential (primary) hypertension; E78.5 Hyperlipidemia, unspecified; Z79.899 Other long term (current) drug therapy
CPT/HCPCS: 36415; 80053; 81001; 84443; 85025; 87077; 87086; 87088; 87186; 93005; 96360; 99284; J7120

== ENCOUNTER 2024-08-14 09:58 | Outpatient (CLI) | payer MEDICARE, SELFPAY ==
--- NOTE | ~2024-08-14 | XR_ITS ---
EXAMINATION: XR chest 2V Exam Date/Time: 08/14/2024 10:40 INTERVENTIONAL PHYSIATRIST HISTORY: FEVER Comparison: 02/23/2024. RESULT: Lines, tubes, and devices: None. Lungs and pleura: Clear. Cardiomediastinal silhouette: Stable. Other: No acute osseous or upper abdominal finding. IMPRESSION: No acute cardiopulmonary process. Reviewed, dictated and finalized at location K. RVENTIONAL PHYSIATRIST
[2024-08-14 10:34] LABS: Basophils Percent Auto 0.2 % (0.2-1.2); Eosinophils Percent Auto 0.2 % (0-4.4); Hematocrit 40.4 % (37.0-47.0); Hemoglobin 13.5 g/dL (12.0-15.0); Immature Granulocyte Absolute 0.12 K/mm3 (0.00-0.031); Immature Granulocyte Percent A 1.4 % (0-0.5); Lymphocytes Absolute Auto 1.76 K/mm3 (0.9-3.2); Lymphocytes Percent Auto 20.3 % (18.3-44.2); Mean Corpuscular HGB Conc 33.4 g/dl (32-36); Mean Corpuscular Hemoglobin 33.7 pg (26-34); Mean Corpuscular Volume 100.7 fl (80-100); Mean Platelet Volume 9.4 fl (7.4-10.4); Monocytes Absolute Auto 0.4 K/mm3 (0.1-0.6); Monocytes Percent Auto 4.6 % (2.6-8.5); Neutrophils Absolute Auto 6.4 K/mm3 (1.3-6.7); Neutrophils Percent Auto 73.3 % (45.5-73.1); Platelet Count Result 221 k/mm3 (150-375); Red Blood Count 4.01 M/mm3 (4.2-5.4); Red Cell Distribution Width 13.9 % (11.5-14.5); White Blood Count 8.7 K/mm3 (4.5-10.0)
[2024-08-14 10:40] LABS: Add Urine Microscopic? YES; Appearance Urine Clear (Clear); Bacteria Urine None Seen /hpf; Bilirubin Urine Negative (Negative); Blood Urine Negative (Negative); Color Urine Yellow (Yellow); Glucose Urine UA Negative (Negative); Ketones Urine Negative (Negative); Leukocyte Esterase Ur Trace LEU/UL (Negative); Nitrate Urine Negative (Negative); Protein Urine Negative (Negative); RBC Urine 0-2 /hpf (0-2); Specific Grav Ur 1.021 (1.001-1.035); Squamous Epithelial Cell Urine Few /hpf (Few); Urobilinogen Urine 0.2 mg/dL (<2.0); pH Urine 5.5 (5.0-9.0)
[2024-08-14 10:47] LABS: Alanine Aminotransferase 24 U/L (6-35); Albumin Level 4.5 g/dL (3.5-5.1); Alkaline Phosphatase 82 U/L (38-126); Anion Gap 6 mmol/L (4-12); Aspartate Amino Transferase 31 U/L (14-36); Bilirubin,Total 1.3 mg/dL (0.2-1.3); Blood Urea Nitrogen 17 mg/dL (7-17); Calcium 9.8 mg/dL (8.4-10.2); Carbon Dioxide 28 mmol/L (22-30); Chloride 99 mmol/L (98-107); Estimated Glomerular Filt Rate > 60; Glucose 97 mg/dL (65-110); Sodium 133 mmol/L (137-145)
== END 2024-08-14 09:59 | disposition home or self-care (01) ==
PROVIDERS: PCP Internal Medicine; Visit Provider Internal Medicine
DX: R50.9 Fever, unspecified (principal)
CPT/HCPCS: 36415; 71046; 80053; 81001; 85025; 87040